=== PATIENT | female | born 1945 ===

== ENCOUNTER 2020-02-07 16:39 | Emergency (ER) | payer OTHER ==
[~2020-02-07] VITALS: Ht 160 cm; Wt 75.7 kg
[2020-02-07] MEDS ORDERED: METFORMIN HCL500 M4 PO (16:59)
[2020-02-07] MEDS ORDERED: LOSARTAN POTASS50 MG PO (16:59)
[2020-02-07] MEDS ORDERED: SYNTHROID100 MCG PO (16:59)
[2020-02-07] MEDS ORDERED: GABAPENTIN300 M2 PO (16:59)
[2020-02-07] MEDS ORDERED: VITAMIN D31250 MCG PO (16:59)
[2020-02-07] MEDS ORDERED: ADMELOG100 UNIT/1 SQ (17:00)
[2020-02-07] MEDS ORDERED: HYDROCHLOROTHIA25 MG PO (17:00)
[2020-02-07] MEDS ORDERED: SIMVASTATIN20 MG PO (17:00)
[2020-02-07] MEDS ORDERED: SEMGLEE100 UNIT/1 SUBCUTANEO (17:00)
== END 2020-02-07 22:58 | disposition home or self-care (01) ==
LOC: ER 16:39
DX: L03.115 Cellulitis of right lower limb (principal); S90.31XS Contusion of right foot, sequela; B95.62 Methicillin resistant Staphylococcus aureus infection as the cause of diseases classified elsewhere; X58.XXXS Exposure to other specified factors, sequela; Z16.39 Resistance to other specified antimicrobial drug